=== PATIENT | male | born 1960 | race Caucasian/White ===

== ENCOUNTER 2017-12-27 05:11 | Emergency (ER) | payer MEDICAID ==
[~2017-12-27] VITALS: Ht 172.7 cm; Wt 77.1 kg
[~2017-12-27 05:11] MED LIST: ASA; COGENTIN; KLONOPIN; MOTRIN; PERPHENAZINE; TRAZADONE
[2017-12-27 07:27] VITALS: BP 128/72
[2017-12-27] MEDS ORDERED: MORPHINE SULFATE 4 MG/ML SYR/VIAL IV ONE (07:45)
[2017-12-27] MEDS ORDERED: ONDANSETRON HCL 4 MG/2 ML VIAL IV ONE (07:45)
== END 2017-12-27 08:46 | disposition home or self-care (01) ==
LOC: ER 05:11
DX: S42.022A Displaced fracture of shaft of left clavicle, initial encounter for closed fracture (principal); F17.210 Nicotine dependence, cigarettes, uncomplicated; Z59.0 Homelessness; Z88.0 Allergy status to penicillin; W22.8XXA Striking against or struck by other objects, initial encounter; Y93.89 Activity, other specified; Y99.8 Other external cause status; Y92.89 Other specified places as the place of occurrence of the external cause
CPT/HCPCS: 73000; 94761; 96374; 96375; 99284; J2270; J2405

== ENCOUNTER 2021-01-04 15:01 | Emergency (ER) | payer MEDICAID ==
[~2021-01-04] VITALS: Ht 172.7 cm; Wt 72.6 kg
[2021-01-04 15:03] VITALS: BP 117/81
== END 2021-01-04 21:37 | disposition left against medical advice (07) ==
LOC: ER 15:01
DX: K62.5 Hemorrhage of anus and rectum (principal); Z53.21 Procedure and treatment not carried out due to patient leaving prior to being seen by health care provider